=== PATIENT | male | born 1995 | race Hispanic/Latino ===

== ENCOUNTER 2018-01-08 14:04 | Emergency (ER) | payer OTHER ==
[2018-01-08] MEDS: METHOCARBAMOL 500 MG TAB PO (16:16)
[2018-01-08] MEDS: KETOROLAC 60 MG/2 ML VIAL (J1885) IM (16:17)
== END 2018-01-08 16:25 | disposition home or self-care (01) ==
LOC: M ED 14:04
DX: M94.0 Chondrocostal junction syndrome [Tietze] (principal); R00.1 Bradycardia, unspecified; R94.31 Abnormal electrocardiogram [ECG] [EKG]
CPT/HCPCS: J1885

== ENCOUNTER 2018-01-21 09:26 | Emergency (ER) | payer OTHER ==
[2018-01-21 10:19] LABS: BASO % 0.5 % (0.0-1.0); EOS # 0.2 10^3/uL (0.0-0.50); EOS % 2.6 % (0.0-3.0); HEMATOCRIT 48.8 % (42.0-52.0); HEMOGLOBIN 17.6 g/dl (13.5-17.5); IMMATURE GRANULOCYTE % 0.6 % (0-3.0); LYMPH # 2.1 10^3/uL (1.5-6.5); LYMPH % 24.5 % (24.0-44.0); MEAN CORPUSCULAR HEMOGLOBIN 31.7 pg (27.0-33.0); MEAN CORPUSCULAR HGB CONC 36.1 g/dl (32.0-36.5); MEAN CORPUSCULAR VOLUME 87.9 fl (80.0-96.0); MONO # 0.8 10^3/uL (0.0-0.8); MONO % 9.2 % (0.0-5.0); NEUTROPHILS # 5.5 10^3/uL (1.8-7.7); NEUTROPHILS % 62.6 % (36.0-66.0); PLATELET COUNT, AUTOMATED 214 10^3/uL (150-450); RED BLOOD COUNT 5.55 10^6/uL (4.30-6.10); RED CELL DISTRIBUTION WIDTH 11.5 % (11.5-14.5); WHITE BLOOD COUNT 8.7 10^3/uL (4.0-10.0)
[2018-01-21 10:31] LABS: D-DIMER QUANT 272.2 ng/ml (<500)
[2018-01-21 10:44] LABS: ERYTHROCYTE SEDIMENTATION RATE 1 mm/hr (0-15)
[2018-01-21 10:57] LABS: ANION GAP 4 MEQ/L (8-16); BLOOD UREA NITROGEN 19 MG/DL (7-18); C REACTIVE PROTEIN QUANTITATIV < 0.30 MG/DL (0.00-0.30); CALCIUM LEVEL 8.6 MG/DL (8.5-10.1); CARBON DIOXIDE LEVEL 32 MEQ/L (21-32); CHLORIDE LEVEL 103 MEQ/L (98-107); CREATININE FOR GFR 1.03 MG/DL (0.70-1.30); GLOMERULAR FILTRATION RATE > 60.0 (>60); GLUCOSE, FASTING 85 MG/DL (70-100); POTASSIUM SERUM 4.4 MEQ/L (3.5-5.1); SODIUM LEVEL 139 MEQ/L (136-145)
== END 2018-01-21 11:16 | disposition home or self-care (01) ==
LOC: M ED 09:26
DX: M94.0 Chondrocostal junction syndrome [Tietze] (principal); R00.1 Bradycardia, unspecified
CPT/HCPCS: 71046

== ENCOUNTER → 2018-02-04 | Outpatient (CLI) | payer OTHER | LOC: M RAD 07:44 | DX: R07.89 Other chest pain (principal) | CPT/HCPCS: 78315 ==

== ENCOUNTER 2018-02-09 20:39 | Emergency (ER) | payer OTHER ==
[2018-02-09] MEDS: SILVER SULFADIAZINE 1% CR 50 GM JAR TOP (22:00)
[2018-02-09] MEDS: NORCO 5/325MG TABLET (BULK FOR ED) PO (22:13)
[2018-02-09] MEDS: IBUPROFEN 600 MG TAB PO (22:13)
== END 2018-02-09 22:18 | disposition home or self-care (01) ==
LOC: M ED 20:39
DX: T25.212A Burn of second degree of left ankle, initial encounter (principal); X19.XXXA Contact with other heat and hot substances, initial encounter; Y92.009 Unspecified place in unspecified non-institutional (private) residence as the place of occurrence of the external cause
CPT/HCPCS: 99283

== ENCOUNTER 2018-09-25 13:58 | Emergency (ER) | payer OTHER ==
[~2018-09-25] VITALS: Ht 182.9 cm; Wt 85.1 kg
[2018-09-25 13:58] VITALS: BP 155/72
[~2018-09-25 13:58] MED LIST: IBUP-1022 PO; IBUP-1114 PO; IBUP80TA PO; KEFL500C17 PO; PRED20TA PO; ROBA500T PO; SILV1CRE60 TOP
[2018-09-25] MEDS ORDERED: MUCI600T31 PO (14:25)
[2018-09-25] MEDS ORDERED: AUGM875T28 PO (14:25)
[2018-09-25] MEDS ORDERED: AUGMENTIN 875 MG TAB PO ONE (14:30)
[2018-09-25] MEDS ORDERED: NAPROXEN 250 MG TAB PO ONE (14:30)
== END 2018-09-25 14:39 | disposition home or self-care (01) ==
LOC: M ED 13:58
DX: H66.93 Otitis media, unspecified, bilateral (principal); J01.90 Acute sinusitis, unspecified; J20.9 Acute bronchitis, unspecified

== ENCOUNTER 2018-10-15 16:54 | Emergency (ER) | payer OTHER ==
[~2018-10-15] VITALS: Ht 182.9 cm; Wt 84.9 kg
[~2018-10-15 16:54] MED LIST changes: +AUGM875T28 PO; +MUCI600T31 PO
[2018-10-15 16:55] VITALS: BP 146/76
--- NOTE | 2018-10-15 17:55 | REP ---
Right fingers four views History: Injury There is no acute fracture or dislocation. The joint spaces are normal in appearance. Impression: There is no acute fracture or dislocation. Electronically Signed by Darren Islas MD 10/15/2018 05:46 P
[2018-10-15] MEDS ORDERED: ACETAMINOPHEN 500 MG TAB PO ONE (20:15)
== END 2018-10-15 20:33 | disposition home or self-care (01) ==
LOC: M ED 16:54
DX: S60.151A Contusion of right little finger with damage to nail, initial encounter (principal); X58.XXXA Exposure to other specified factors, initial encounter; Y92.138 Other place on military base as the place of occurrence of the external cause; Y99.1 Military activity

== ENCOUNTER 2019-03-13 11:10 | Emergency (ER) | payer OTHER ==
[~2019-03-13] VITALS: Ht 182.9 cm; Wt 87.6 kg
[2019-03-13] MEDS ORDERED: BENA25CA4 PO (11:23)
[2019-03-13 12:14] VITALS: BP 132/68
== END 2019-03-13 12:17 | disposition home or self-care (01) ==
LOC: M ED 11:10
DX: H00.014 Hordeolum externum left upper eyelid (principal)